=== PATIENT | male | born 1965 | race American Indian/Alaskan Native ===

== ENCOUNTER 2016-12-15 16:48 | Emergency (ER) | payer OTHER ==
[2016-12-15 17:44] LABS: Basophils % (Auto) 0.6 % (0.0-1.8); Eosinophils % (Auto) 8.8 % (0.0-4.3); Mean Corpuscular HGB Conc 31 % (32-34); Mean Corpuscular Volume 72 fl (84-94); Platelet Count 171 K/mm3 (140-440); Red Blood Count 6.78 M/mm3 (3.65-5.03); White Blood Count 5.2 K/mm3 (4.5-11.0)
[2016-12-15 17:46] LABS: Hematocrit 48.9 % (35.5-45.6); Hemoglobin 15.2 gm/dl (11.8-15.2); Mean Corpuscular Hemoglobin 22 pg (28-32)
[2016-12-15 18:03] LABS: Creatine Kinase MB 2.5 ng/mL (0.0-4.0)
[2016-12-15 18:04] LABS: Anion Gap 17 mmol/L; Blood Urea Nitrogen 15 mg/dL (9-20); Calcium 9.4 mg/dL (8.4-10.2); Carbon Dioxide 27 mmol/L (22-30); Chloride 95.3 mmol/L (98-107); Creatine Kinase 574 units/L (55-170); Glucose 103 mg/dL (75-100); Potassium 4.3 mmol/L (3.6-5.0); Sodium 135 mmol/L (137-145)
[2016-12-15 18:34] LABS: Bacteria,Urine 1+ /HPF (Negative); Bilirubin,Urine NEG (Negative); Blood,Urine NEG (Negative); Ketones,Urine NEG (Negative); Leukocyte Esterase,Urine NEG (Negative); Mucus,Urine FEW /HPF; Nitrite,Urine NEG (Negative); Protein,Urine <15 mg/dL mg/dL (Negative); RBC,Urine < 1.0 /HPF (0.0-6.0); Urobilinogen,Urine < 2.0 mg/dL (<2.0); WBC,Urine < 1.0 /HPF (0.0-6.0)
[2016-12-15 18:45] VITALS: BP 149/96
--- NOTE | 2016-12-16 19:14 | ED Elopement Review ---
ED Pt Elopement review - Results review Lab results: Laboratory Tests 12/15/16 12/15/16 12/15/16 17:26 17:26 18:17 WBC 5.2 RBC 6.78 H Hgb 15.2 Hct 48.9 H MCV 72 L MCH 22 L MCHC 31 L RDW 15.0 Plt Count 171 Lymph % (Auto) 41.5 H [place] % (Auto) 9.0 H Eos % (Auto) 8.8 H Baso % (Auto) 0.6 Lymph # 2.2 [place] # 0.5 Eos # 0.5 H Baso # 0.0 Seg Neutrophils % 40.1 Seg Neutrophils # 2.1 Sodium 135 L Potassium 4.3 Chloride 95.3 L Carbon Dioxide 27 Anion Gap 17 BUN 15 Creatinine 1.2 Estimated GFR > 60 BUN/Creatinine Ratio 12.50 Glucose 103 H Calcium 9.4 Total Creatine Kinase 574 H CK-MB (CK-2) 2.5 CK-MB (CK-2) Rel Index 0.4 Troponin T < 0.010 Urine Color Yellow Urine Turbidity Clear Urine pH 7.0 Ur Specific [place] 1.006 Urine Protein <15 mg/dl Urine Glucose (UA) Neg Urine Ketones Neg Urine Blood Neg Urine Nitrite Neg Urine Bilirubin Neg Urine Urobilinogen < 2.0 Ur Leukocyte Esterase Neg Urine WBC (Auto) < 1.0 Urine RBC (Auto) < 1.0 Urine Bacteria (Auto) 1+ Urine Mucus Few - Call Back decision Pt Call Back Decision: No action required
== END 2016-12-15 21:10 | disposition left against medical advice (07) ==
LOC: ED 16:48
DX: R07.9 Chest pain, unspecified (principal); R20.0 Anesthesia of skin; Z53.21 Procedure and treatment not carried out due to patient leaving prior to being seen by health care provider
CPT/HCPCS: 36415; 80048; 81001; 82550; 82553; 84484; 85025; 93005; 93010